=== PATIENT | female | born 1950 | race Caucasian/White ===

== ENCOUNTER 2019-02-14 01:47 | Emergency (ER) | payer MEDICARE, OTHER ==
--- NOTE | 2019-02-14 03:19 | ER Document Report ---
HPI - HPI Time Seen by Provider: 02/14/19 03:13 Pain Level: 3 Context: Patient is a 68-year-old female that comes emergency department for chief complaint of a sore throat. She states she has had some congestion developing, occasional cough, occasional chills. She denies chest pain, headache, she states her only pain currently is her throat. She states her does have similar symptoms. She has had her influenza and pneumonia vaccines. She has a history of hypertension but denies any history otherwise. - EENT EENT: REPORTS: Sore Throat Past Medical History - General Information source: Patient - Social History Smoking Status: Former Smoker Frequency of alcohol use: None Drug Abuse: None Lives with: Family Family History: Reviewed & Not Pertinent Patient has suicidal ideation: No Patient has homicidal ideation: No - Past Medical History Cardiac Medical History: Reports: Hx Hypertension Surgical Hx: Negative - Immunizations Immunizations up to date: Yes Hx Diphtheria, Pertussis, Tetanus Vaccination: Yes Vertical Provider Document - CONSTITUTIONAL General Appearance: WD/WN, No Apparent Distress - INFECTION CONTROL TRAVEL OUTSIDE OF THE [place] IN LAST 30 DAYS: No - HEENT HEENT: Atraumatic, Normocephalic. negative: Normal ENT Exam - Mild maxillary sinus tenderness, sinus congestion, mild postnasal drainage, unremarkable oropharyngeal exam otherwise. Normal ears, normal eyes. - NECK Neck: Normal Inspection. negative: Lymphadenopathy-Left, Lymphadenopathy-Right - RESPIRATORY Respiratory: Breath Sounds Normal, No Respiratory Distress. negative: Wheezing - CARDIOVASCULAR Cardiovascular: Regular Rate, Regular Rhythm. negative: Tachycardia - GI/ABDOMEN Gastrointestinal: Abdomen Soft, Abdomen Non-Tender - BACK Back: Normal Inspection - MUSCULOSKELETAL/EXTREMETIES Musculoskeletal/Extremeties: MAEW, FROM, Non-Tender - NEURO Level of Consciousness: Awake, Alert, Appropriate - DERM Integumentary: Warm, Dry, No Rash Course - Re-evaluation Re-evalutation: Chest x-ray unremarkable, strep is negative. Exam is consistent with viral upper respiratory infection and probably developing sinus infection. Patient states she has no local follow-up and she is requesting both antibiotics and steroids and she states she has had this in the past and this is done for the best. She states she will follow-up with her provider after they go home and she is trying to recover first. She was provided with azithromycin and dexamethasone here. Discussed return precautions at length. Patient states marylin reciation and agreement. She is going home with her . Stable at time of discharge. - Vital Signs Vital signs: Temp Pulse Resp BP Pulse Ox 98.1 F 76 16 142/85 H 96 02/14/19 02:00 02/14/19 02:00 02/14/19 02:00 02/14/19 02:00 02/14/19 02:00 Discharge - Discharge Clinical Impression: Pharyngitis Qualifiers: Pharyngitis/tonsillitis etiology: unspecified etiology Qualified Code(s): J02.9 - Acute pharyngitis, unspecified Sinusitis Qualifiers: Sinusitis location: maxillary Chronicity: acute Recurrence: not specified as recurrent Qualified Code(s): J01.00 - Acute maxillary sinusitis, unspecified Condition: Stable Disposition: HOME, SELF-CARE Additional Instructions: Your strep test is negative. Your evaluation is consistent with probably a viral upper respiratory infection and a developing sinus infection. Take antibiotics as prescribed to completion. You can take [id number] medication such as Tylenol, nasal spray, antihistamines, etc. Follow-up with primary care. Return if you worsen including severe headache, difficulty breathing or swallowing, spiking fever, or any other concerning symptoms. Prescriptions: Azithromycin [Zithromax 250 mg Tablet] 250 mg PO ASDIR PRN #4 tablet PRN Reason:
--- NOTE | 2019-02-14 03:47 | RADIOLOGY REPORT (SQ) ---
EXAM DESCRIPTION: XR CHEST 2 VIEWS COMPLETED DATE/TME: 02/14/2019 03:17 CLINICAL HISTORY: 68 years Female, cough, chills COMPARISON: None. NUMBER OF VIEWS/TECHNIQUE: 2, Frontal, Lateral FINDINGS: Increased lung volume, clear parenchyma, normal cardiac silhouette, and intact bony thorax. IMPRESSION: No acute cardiopulmonary findings.
[2019-02-14] MEDS ORDERED: AZITHROMYCIN 250 MG TABLET PO ONE (04:30)
[2019-02-14] MEDS ORDERED: DEXAMETHASONE SOD PHOS INJ 10 MG/1 ML VIAL IM ONE (04:31)
[2019-02-14 04:52] VITALS: BP 139/74
== END 2019-02-14 04:52 | disposition home or self-care (01) ==
LOC: ER 01:47
DX: J02.9 Acute pharyngitis, unspecified (principal); J01.00 Acute maxillary sinusitis, unspecified; R05 Cough; R68.83 Chills (without fever); R09.82 Postnasal drip; R09.81 Nasal congestion; I10 Essential (primary) hypertension; Z87.891 Personal history of nicotine dependence
CPT/HCPCS: 99283; 96374; 87070; 87880; 71046; A9270; J1100